=== PATIENT | female | born 1985 | race Caucasian/White ===

== ENCOUNTER → 2017-12-24 | Outpatient (CLI) | payer OTHER | LOC: BRMIMAGING 16:00 | PROVIDERS: ATTEND Internal Medicine | DX: M54.5 Low back pain (principal); M51.27 Other intervertebral disc displacement, lumbosacral region; X50.0XXA Overexertion from strenuous movement or load, initial encounter | CPT/HCPCS: 72100-PO ==

== ENCOUNTER 2018-12-29 15:49 | Inpatient (IN) | payer OTHER ==
[2018-12-29] MEDS ORDERED: NS 1,000 ML IV ONE (16:14)
[2018-12-29] MEDS ORDERED: HYDROmorphONE/DILAUDID 2 MG/ML INJ IVP ONE (16:14)
[2018-12-29 16:30] LABS: PLATELET COUNT 334 10^3/uL (150-400)
--- NOTE | 2018-12-29 17:00 | EDPHY ---
H & P Stated Complaint: RLQ abdominal pain since Saturday PM Time Seen by Provider: 12/29/18 16:06 HPI/ROS: CHIEF COMPLAINT: Right lower quadrant pain HISTORY OF PRESENT ILLNESS: The patient presents the ED with complaints of increasing right lower quadrant pain over past 72 hr. The patient denies any vomiting or fever. She does report mild anorexia today. The patient denies prior history of the symptoms. The patient denies hematuria or dysuria. The patient denies recent travel outside the [place]. She has no respiratory symptoms. REVIEW OF SYSTEMS: A comprehensive 10 point review of systems is otherwise negative aside from elements mentioned in the history of present illness. Source: Patient - Personal History LMP (Females 10-55): 1-7 Days Ago Current Tetanus/Diphtheria Vaccine: No Current Tetanus Diphtheria and Acellular Pertussis (TDAP): No - Medical/Surgical History Hx Asthma: No Hx Chronic Respiratory Disease: No Hx Diabetes: No Hx Cardiac Disease: No Hx Renal Disease: No Hx Cirrhosis: No Hx Alcoholism: No Hx HIV/AIDS: No Hx Splenectomy or Spleen Trauma: No Other PMH: mi - spontaneous cardiac arterial dissection, depression - Social History Smoking Status: Never smoked - Physical Exam Exam: General Appearance: Alert, no distress Eyes: Pupils equal and round no pallor or injection ENT, Mouth: Mucous membranes moist Respiratory: There are no retractions, lungs are clear to auscultation Cardiovascular: Regular rate and rhythm Gastrointestinal: Tenderness to palpation right lower quadrant, mild rebound and guarding Neurological: A&O, normal motor function, normal sensory exam, normal cranial nerves Skin: Warm and dry, no rashes Musculoskeletal: Neck is supple nontender Extremities: symmetrical, full range of motion Psychiatric: Patient is oriented X 3, there is no agitation Constitutional: Initial Vital Signs Temperature (C) 36.8 C 12/29/18 15:51 Heart Rate 79 12/29/18 15:51 Respiratory Rate 19 12/29/18 15:51 Blood Pressure 121/83 H 12/29/18 15:51 O2 Sat (%) 94 12/29/18 15:51 O2 Delivery Mode Room Air Allergies/Adverse Reactions: No Known Allergies Allergy (Unverified 07/14/18 23:02) Home Medications: Medication Instructions Recorded oxyCODONE/APAP 5/325 [Percocet 1 - 2 tab PO Q4H PRN #10 tab 07/14/18 5/325 (*)] Medical Decision Making - Diagnostics EKG Interpretation: EKG: Complete interpretation has been separately recorded in the [facility] archive. Summary impression: Sinus rhythm, left bundle branch block Imaging Results: Imaging Impressions Abdomen CT 12/29/18 16:57 Impression: Acute appendicitis, not ruptured. Findings and recommendations discussed with Dr. Asa Edwards at 5:30 p.m., . Final report concurs with initial preliminary interpretation. ED Course/Re-evaluation: The patient presents the ED for evaluation of right lower quadrant pain for the past day. The patient was noted to have mild tenderness to palpation in the right lower quadrant. Patient was noted to have a slight leukocytosis. Patient had an IV established. She received half a mg of Dilaudid. She received 1 L of normal saline for dehydration. CT scan of the abdomen pelvis was obtained which demonstrates evidence of acute appendicitis without perforation. Patient received 1 g of cefoxitin in the emergency department. Consultation was made with Dr. Jimmie Garsia from General surgery. Patient will be admitted to the hospital for further evaluation and management of her acute appendicitis. The patient was seen by General Surgery in the ED at 5:47pm Differential Diagnosis: Differential diagnosis considered includes appendicitis, perforation, abscess, mesenteric adenitis - Data Points Laboratory Results: Laboratory Results 12/29/18 16:12 12/29/18 16:12 12/29/18 12/29/18 12/29/18 16:12 16:12 16:12 WBC 13.10 10^3/uL H 10^3/uL (3.80-9.50) RBC 4.99 10^6/uL 10^6/uL (4.18-5.33) Hgb 14.5 g/dL g/dL (12.6-16.3) Hct 42.4 % % (38.0-47.0) MCV 85.0 fL fL (81.5-99.8) MCH 29.1 pg pg (27.9-34.1) MCHC 34.2 g/dL g/dL (32.4-36.7) RDW 12.9 % % (11.5-15.2) Plt Count 334 10^3/uL 10^3/uL (150-400) MPV 9.7 fL fL (8.7-11.7) Neut % (Auto) 66.7 % % (39.3-74.2) Lymph % (Auto) 22.9 % % (15.0-45.0) [place] % (Auto) 7.1 % % (4.5-13.0) Eos % (Auto) 2.5 % % (0.6-7.6) Baso % (Auto) 0.5 % % (0.3-1.7) Nucleat RBC Rel Count 0.0 % % (0.0-0.2) Absolute Neuts (auto) 8.74 10^3/uL H 10^3/uL (1.70-6.50) Absolute Lymphs (auto) 3.00 10^3/uL 10^3/uL (1.00-3.00) Absolute Monos (auto) 0.93 10^3/uL H 10^3/uL (0.30-0.80) Absolute Eos (auto) 0.33 10^3/uL 10^3/uL (0.03-0.40) Absolute Basos (auto) 0.06 10^3/uL 10^3/uL (0.02-0.10) Absolute Nucleated RBC 0.00 10^3/uL 10^3/uL (0-0.01) Immature Gran % 0.3 % % (0.0-1.1) Immature Gran # 0.04 10^3/uL 10^3/uL (0.00-0.10) Sodium 137 mEq/L mEq/L (135-145) Potassium 4.1 mEq/L mEq/L (3.5-5.2) Chloride 106 mEq/L mEq/L (97-110) Carbon Dioxide 21 mEq/l L mEq/l (22-31) Anion Gap 10 mEq/L mEq/L (6-14) BUN 16 mg/dL mg/dL (7-23) Creatinine 1.1 mg/dL H mg/dL (0.6-1.0) Estimated GFR 57 Glucose 102 mg/dL H mg/dL (70-100) Calcium 9.3 mg/dL mg/dL (8.5-10.4) Beta HCG, Qual NEGATIVE Medications Given: Discontinued Medications Hydromorphone HCl (Dilaudid) 0.5 mg IVP EDNOW ONE Stop: 12/29/18 16:15 Last Admin: 12/29/18 16:25 Dose: 0.5 mg Sodium Chloride (Ns) 1,000 mls @ 0 mls/hr IV EDNOW ONE; Wide Open PRN Reason: Protocol Stop: 12/29/18 16:15 Last Admin: 12/29/18 16:25 Dose: 1,000 mls Departure - Departure Disposition: [facility] Inpatient Acute Clinical Impression: Appendicitis Qualifiers: Appendicitis type: acute appendicitis Acute appendicitis type: with localized peritonitis Appendicitis gangrene presence: without gangrene Appendicitis perforation presence: without perforation Appendicitis abscess presence: without abscess Qualified Code(s): K35.30 - Acute appendicitis with localized peritonitis, without perforation or gangrene Condition: Good
[2018-12-29] MEDS ORDERED: IOHEXOL 300 mgI/ML (OMNIPAQUE) 150 ML BTL IV ONE (17:01)
[2018-12-29] MEDS ORDERED: cefOXitin SODIUM 1 GM in NS 50 ML IV ONE (17:34)
--- NOTE | 2018-12-29 17:59 | CPEKG ---
Test Reason : OPEN Blood Pressure : / mmHG Vent. Rate : 074 BPM Atrial Rate : 074 BPM P-R Int : 164 ms QRS Dur : 153 ms QT Int : 433 ms P-R-T Axes : 030 -33 111 degrees QTc Int : 481 ms Sinus rhythm Left bundle branch block Confirmed by Asa Edwards ([id number]) on 12/29/2018 5:58:15 PM Referred By: Asa Edwards Confirmed By:Asa Edwards
[2018-12-29] MEDS ORDERED: cefOXitin SODIUM 2 GM in NS 100 ML IV ONE (18:05)
[2018-12-29] MEDS ORDERED: HYDROmorphONE/DILAUDID 1 MG/ML INJ IVP PRN (18:25)
[2018-12-29] MEDS ORDERED: HYDROmorphONE/DILAUDID 1 MG/ML INJ ONE (18:26)
[2018-12-29] MEDS ORDERED: BUPIVACAINE/EPI 0.5% 30 ML SDV ONE (18:36)
--- NOTE | 2018-12-29 18:47 | PDGENHP ---
History & Physical Chief Complaint: rlq pain- ct documented acute appendicitis, pain for 3 days Pertinent Past, Social, Family History: non contrib. 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 currnet meds lisinopril, bisoprolol, spironolactone, asa. non smker, no etoh. 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 lungs clear heart nml s1s2 no m. abd tender rlq, no guarding, no rigitity. ext/neuro wnl
[2018-12-29] MEDS ORDERED: CITRIC ACID/SODIUM CITRATE 30 ML UDCUP PO ONE (19:14)
[2018-12-29] MEDS ORDERED: MIDAZOLAM 2 MG/2 ML VIAL IVP ONE (19:14)
--- NOTE | 2018-12-29 19:16 | PDANEPAE ---
ANE Past Medical History - Cardiovascular History Hx Hypertension: No Hx Arrhythmias: No Hx Chest Pain: No Hx Coronary Artery / Peripheral Vascular Disease: Yes Hx CHF / Valvular Disease: No Hx Palpitations: No - Pulmonary History Hx COPD: No Hx Asthma/Reactive Airway Disease: No Hx Recent Upper Respiratory Infection: No Hx Oxygen in Use at Home: No Hx Sleep Apnea: No - Endocrine History Hx Diabetes: No Hypothyroid: No Hyperthyroid: No Obesity: moderate ANE Review of Systems Review of Systems: ANE Patient History - Allergies Allergies/Adverse Reactions: banana Allergy (Verified 12/29/18 18:52) Itch kiwi Allergy (Verified 12/29/18 18:52) Itch Latex, Natural Rubber Allergy (Verified 12/29/18 18:53) swelling locally orange Allergy (Verified 12/29/18 18:52) Itch shellfish derived Allergy (Verified 12/29/18 18:52) Pass Out strawberry Allergy (Verified 12/29/18 18:52) Itch tide Allergy (Uncoded 12/29/18 18:52) Rash - Home Medications Home Medications: Albuterol [Proventil Inhaler HFA (*)] 1 - 2 puffs IH Q4H PRN 12/29/18 [Last Taken 1 Month Ago ~11/28/18] Aspirin EC [Aspirin EC 81 mg (*)] 81 mg PO HS 12/29/18 [Last Taken 12/28/18] Bisoprolol Fumarate 10 mg PO HS 12/29/18 [Last Taken 12/28/18] Cetirizine [ZyrTEC 10 mg (*)] 10 mg PO HS 12/29/18 [Last Taken 12/28/18] Escitalopram Oxalate [Lexapro] 10 mg PO DAILY 12/29/18 [Last Taken 12/29/18] Herbals/Supplements -Info Only 1 ea PO DAILY 12/29/18 [Last Taken 12/28/18] Lisinopril [Zestril 2.5 mg (*)] 2.5 mg PO HS 12/29/18 [Last Taken 12/28/18] Norethindrone [Norlyda] 0.35 mg PO HS 12/29/18 [Last Taken 12/28/18] Spironolactone [Aldactone 25 MG (*)] 12.5 mg PO HS 12/29/18 [Last Taken 12/28/18 ] buPROPion XL [Wellbutrin Xl] 150 mg PO DAILY 12/29/18 [Last Taken 12/29/18] - NPO status NPO Since - Liquids (Date): 12/29/18 NPO Since - Liquids (Time): 12:30 NPO Since - Solids (Date): 12/29/18 NPO Since - Solids (Time): 12:30 - Smoking Hx Smoking Status: Never smoked ANE Labs/Vital Signs - Labs Result Diagrams: 12/29/18 16:12 12/29/18 16:12 - Vital Signs Blood Pressure: 124/80 Heart Rate: 77 Respiratory Rate: 16 O2 Sat (%): 96 Height: 177.8 cm Weight: 108.862 kg ANE Physical Exam - Airway Neck exam: FROM Mallampati Score: Class 1 Mouth exam: normal dental/mouth exam - Pulmonary Pulmonary: no respiratory distress - Cardiovascular Cardiovascular: regular rate and rhythym ANE Anesthesia Plan Anesthesia Plan: general endotracheal anesthesia
[2018-12-29] MEDS ORDERED: LR 1,000 ML IV ONE (19:18)
[2018-12-29] MEDS ORDERED: CITRIC ACID/SODIUM CITRATE 30 ML UDCUP ONE (19:21)
[2018-12-29] MEDS ORDERED: MIDAZOLAM 2 MG/2 ML VIAL ONE ×2 (19:21→21:08)
[2018-12-29] MEDS ORDERED: PROPOFOL 200 MG/20 ML VIAL ONE ×2 (19:26→19:27)
[2018-12-29] MEDS ORDERED: ROCURONIUM 100 MG/10 ML VIAL ONE (19:27)
[2018-12-29] MEDS ORDERED: LIDOCAINE 2% 5 ML SDV ONE (19:27)
[2018-12-29] MEDS ORDERED: fentaNYL 250 MCG/5 ML INJ ONE (19:27)
[2018-12-29] MEDS ORDERED: HYDROmorphONE/DILAUDID 1 MG/ML INJ IVP ONE (20:00)
[2018-12-29] MEDS: HYDROmorphONE/DILAUDID 2 MG/ML INJ IVP PRN ×6 (21:00→21:49)
[2018-12-29] MEDS ORDERED: HYDROmorphONE/DILAUDID 2 MG/ML INJ ONE (21:13)
[2018-12-29] MEDS ORDERED: PROMETHAZINE HCL 25 MG/ML INJ IVP PRN (21:23)
[2018-12-29] MEDS ORDERED: NALOXONE HCL 0.4 MG/ML INJ IVP PRN (21:23)
[2018-12-29] MEDS ORDERED: HYDROCODONE/APAP 5/325 TAB PO PRN (21:23)
[2018-12-29] MEDS ORDERED: LR 500 ML IV PRN (21:23)
[2018-12-29] MEDS ORDERED: LABETALOL HCL 5 MG/ML 20 ML MDV IVP PRN (21:23)
--- NOTE | 2018-12-29 21:23 | POSTANESTH ---
Post Anesthetic Evaluation Cardiovascular Status: Normal, Stable Respiratory Status: Normal, Stable Level of Consciousness/Mental Status: Can Participate in Eval Pain Control: Adequate, Prn Tx Ordered Nausea/Vomiting Control: Adequate, Prn Tx Ordered Complications Possibly Related to Anesthesia: None Noted (Patient seems emotionally distressed, but oriented to time, place, person. Benzodiazepine titrated, in addition to Dilaudid for pain control.)
[2018-12-29] MEDS ORDERED: ONDANSETRON 4 MG/2 ML VIAL IVP PRN (21:24)
--- NOTE | 2018-12-29 21:24 | POSTOPPROG ---
Post Op Note Date of Operation: 12/29/18 Surgeon: Jimmie Garsia Anesthesia: GET(General Endotracheal) Pre-op Diagnosis: acute appy Post-op Diagnosis: same- focal rupture Indication: same Procedure: lap appy Findings: fibrosis, contained rupture Inf/Abcess present in the surg proc area at time of surgery?: Yes Depth: Organ Space EBL: Minimal Complications: none
[2018-12-29] MEDS ORDERED: KETOROLAC 30 MG/1 ML SDV ONE (21:26)
[2018-12-29] MEDS ORDERED: KETOROLAC 30 MG/1 ML SDV IVP ONE (21:26)
[2018-12-29] MEDS ORDERED: fentaNYL 100 MCG/2 ML INJ ONE (21:36)
[2018-12-29] MEDS: fentaNYL 100 MCG/2 ML INJ IVP PRN ×2 (21:38→21:43)
[2018-12-29] MEDS ORDERED: HYDROCODONE/APAP 5/325 TAB ONE (21:53)
--- NOTE | 2018-12-29 21:59 | GOP ---
[f rep st] OPERATIVE REPORT DATE OF OPERATION: 12/29/2018 SURGEON: Jimmie Garsia MD PREOPERATIVE DIAGNOSIS: Appendicitis, focal rupture. POSTOPERATIVE DIAGNOSIS: Appendicitis, focal rupture. PROCEDURE PERFORMED: Laparoscopic appendectomy, focal, ruptured. FINDINGS: INDICATIONS: Patient with CT-documented acute appendicitis, white blood count 13,000. DESCRIPTION OF PROCEDURE: Under general anesthetic, the abdomen scrubbed with ChloraPrep, draped in the usual sterile fashion, infraumbilical incision made, and a Veress needle used to achieve a pneumo peritoneum. This was somewhat difficult because of thick panniculus. However, eventually, correct e ntrance was made, a 12 mm port placed; eventually, two 5 mm ports elsewhere. The viscera were examin ed. There was no gross purulence. The appendix could not be easily seen; it was quite retroperitone al. The terminal ileum was freed up from the right lateral sidewall, as was the cecum, and then the appendix identified. It was indurated, fibrotic, stuck both to the backside of the terminal ileum, a s well as the base of the cecum. This was carefully freed up with both blunt and sharp dissection, a nd it was felt easier to do a retrograde appendectomy. Therefore, the appendix, which was normal wer e it joined the cecum, was amputated with a blue cartridge of an Endo BRENDA 35. Then, the mesoappendix could be safely taken with the Harmonic Scalpel. As the distal 3rd of the appendix was freed up, it was obvious there was a focal rupture into the mesentery. A small amount of either purulence or muc us was leaking out of this, and it was sucked up with cautery, and at the end of the case after the a ppendix was placed in an Endopouch, irrigation and suction cleaned out the right lower quadrant furth er. There was no significant bleeding. As much fluid as possible was aspirated from the abdomen, al l of which was irrigation, after which, the appendix was extracted in the bag. The fascial defect at the umbilicus closed with a [id number] 0 Vicryl suture. Skin incisions all closed with 4-0 Josemanuel ryl and Dermabond. Patient tolerated the procedure well. /[id number]/MODL
[2018-12-29] MEDS: HYDROmorphONE/DILAUDID 1 MG/ML INJ IVP PRN (22:53)
[2018-12-29] MEDS: LR 1,000 ML IV SCH (22:53)
[2018-12-29] MEDS: cefOXitin SODIUM 1 GM in NS 50 ML IV SCH (23:49)
[2018-12-30] MEDS: cefOXitin SODIUM 1 GM in NS 50 ML IV SCH ×4 (06:09→23:19)
[2018-12-30] MEDS: LR 1,000 ML IV SCH (06:09)
--- NOTE | 2018-12-30 06:12 | PDMN ---
Medical Necessity Medical necessity: [facility] [place] [id number] appy with abscess or peritonitis , by Lap 2 days - OP: Lap appy , focal, ruptured
[2018-12-30] MEDS: HYDROmorphONE/DILAUDID 1 MG/ML INJ IVP PRN ×7 (06:18→23:19)
[2018-12-30] MEDS: HYDROCODONE/APAP 5/325 TAB PO PRN ×4 (07:49→19:35)
[2018-12-30] MEDS ORDERED: ALBUTEROL 60 PUFFS/8 GM MDI IH PRN (10:26)
[2018-12-30] MEDS: buPROPion XL 150 MG TAB PO SCH (11:42)
[2018-12-30] MEDS: ESCITALOPRAM OXALATE 10 MG TAB PO SCH (11:42)
--- NOTE | 2018-12-30 14:43 | ASMTCMCOM ---
CM Note CM Note Notes: Chart reviewed for dc planning purposes. Patient is 33 year old female s/p appendectomy. No needs identified. CM available should needs arise. Plan: DC home when medically cleared for dc. Date Signed: 12/30/2018 02:42 PM Electronically Signed By:Mihaela Leon RN
--- NOTE | 2018-12-30 18:45 | SOAPPROG ---
SOAP Progress Note Assessment/Plan: Assessment: Plan: Subjective: vss, af abd soft. plan to continue antibiotics at least one more day. will re eval tomorrow Objective: Vital Signs Temp Pulse Resp BP Pulse Ox 36.4 C 93 16 117/67 95 12/30/18 15:07 12/30/18 15:07 12/30/18 15:07 12/30/18 15:07 12/30/18 15:07 12/29/18 12/30/18 12/31/18 05:59 05:59 05:59 Intake Total 4282 700 Output Total 760 400 Balance 3522 300 ICD10 Worksheet Patient Problems: Problems Problem Status Onset Appendicitis Acute Abrasion Acute Contusion Acute
[2018-12-30] MEDS ORDERED: NORETHINDRONE 0.35 MG PO SCH (21:00)
[2018-12-30] MEDS ORDERED: CETIRIZINE 10 MG TAB PO SCH (21:00)
[2018-12-30] MEDS ORDERED: LISINOPRIL 2.5 MG TAB PO SCH (21:00)
[2018-12-30] MEDS ORDERED: BISOPROLOL FUMARATE 5 MG TAB PO SCH (21:00)
[2018-12-30] MEDS ORDERED: SPIRONOLACTONE 25 MG TAB PO SCH (21:00)
[2018-12-30] MEDS ORDERED: ASPIRIN EC 81 MG TAB PO SCH (21:00)
[2018-12-30] MEDS: oxyCODONE IR 5 MG TAB PO PRN ×2 (21:44→22:19)
[2018-12-31] MEDS: HYDROmorphONE/DILAUDID 1 MG/ML INJ IVP PRN ×4 (00:44→11:28)
[2018-12-31] MEDS: oxyCODONE IR 5 MG TAB PO PRN ×4 (04:29→16:58)
[2018-12-31] MEDS: cefOXitin SODIUM 1 GM in NS 50 ML IV SCH ×2 (05:29→13:06)
[2018-12-31] MEDS: LR 1,000 ML IV SCH (08:30)
[2018-12-31] MEDS: ESCITALOPRAM OXALATE 10 MG TAB PO SCH (08:36)
[2018-12-31] MEDS: buPROPion XL 150 MG TAB PO SCH (08:36)
--- NOTE | 2018-12-31 12:39 | SOAPPROG ---
SOAP Progress Note Assessment/Plan: Assessment: Plan: Subjective: afebrile, ready to dc home will send on augmentin 875 bicd for 5 days Objective: Vital Signs Temp Pulse Resp BP Pulse Ox 36.6 C 77 14 96/54 L 92 12/31/18 04:00 12/31/18 04:00 12/31/18 04:00 12/31/18 04:00 12/31/18 04:00 12/30/18 12/31/18 01/01/19 05:59 05:59 05:59 Intake Total 4282 3430 Output Total 760 1150 400 Balance 3522 2280 -400 ICD10 Worksheet Patient Problems: Problems Problem Status Onset Appendicitis Acute Abrasion Acute Contusion Acute
[2018-12-31 12:46] VITALS: BP 107/63
--- NOTE | 2018-12-31 13:05 | GDS ---
[f rep st] DISCHARGE SUMMARY PRESENT ILLNESS: Patient was admitted with acute appendicitis. At surgery, she was found to have a contained ruptured appendix. She was kept in the hospital, maintained on Mefoxin. She is afebrile. It is felt reasonable to send her home on 5 days of Augmentin. FINAL DIAGNOSIS: Focally ruptured acute appendicitis. OPERATION: Laparoscopic appendectomy for ruptured appendicitis. COMPLICATIONS: None. DISPOSITION: Home. DISCHARGE MEDICATIONS: Augmentin 875 p.o. twice daily, #10 given. FOLLOWUP: With Dr. Garsia in a week. /[id number]/MODL
--- NOTE | 2018-12-31 15:53 | ASMTLACE ---
KOFFI Length of stay for Answers: 2 days current admission Acuity / Level of Answers: Yes Care: Did the patient have an inpatient admission? Comorbidities - select Answers: Coronary Artery Disease all that apply Previous myocardial infarction # of Emergency department Answers: 1-2 visits in the last 6 months Social determinants Answers: Mental health diagnosis (anxiety, depression, pers onality disorders, etc.) Score: 12 Date Signed: 12/31/2018 03:52 PM Electronically Signed By:Mya Santoyo RN
== END 2018-12-31 17:29 | disposition home or self-care (01) | DRG 343 ==
LOC: F1N 22:12
PROVIDERS: ADMIT Surgery; ATTEND Surgery
PROC: 0DTJ4ZZ Resection of Appendix, Percutaneous Endoscopic Approach (ICD-10-PCS; principal; 2018-12-29 19:45)
DX: K35.30 Acute appendicitis with localized peritonitis, without perforation or gangrene (principal); E86.0 Dehydration; F32.9 Major depressive disorder, single episode, unspecified; Z91.040 Latex allergy status
CPT/HCPCS: 96374; 97116-GP; 97161-GP; J0694; J1170; J1885; J2250; J2704; J3010; Q9967

== ENCOUNTER 2019-01-15 21:33 | Emergency (ER) | payer OTHER ==
--- NOTE | 2019-01-15 22:03 | EDPHY ---
H & P Stated Complaint: abnormal d-dimer- 2 weeks post- op Time Seen by Provider: 01/15/19 22:00 HPI/ROS: HPI: This is a 33-year-old female who presents with Chief Complaint: Right-sided chest pain Location: Right-sided chest Quality: Pain and dyspnea Duration: Since last night Signs and Symptoms: + shortness of breath at rest, + shortness of breath on exertion, no cough, no chest pain, no palpitations, no lower extremity edema, no wheezing, no orthopnea, no paroxysmal nocturnal dyspnea, no fever, no injury/ trauma, no hemoptysis, no carpal pedal spasms Timing: Worsening Severity: Moderate Context: Patient is status post laparoscopic appendectomy by Dr. Jimmie Garsia on 12/29/2018 presents with right sided chest discomfort accompanied by shortness of breath and inability to take a deep breath starting yesterday evening while lying in bed. Patient reports that while she has at work this afternoon she started to feel short of breath at rest and on exertion while she was standing talking to her boss. She reports that the feeling became more intense. Denies any recent long distance travel. History of asthma. Nonsmoker. She went to primary care provider today Dr. Franco who ordered chest x-ray and rib series that were unremarkable per the patient. Laboratory studies were unremarkable except an elevated D-dimer at 5.50. She was then directed to the emergency room to evaluate for pulmonary embolism. Modifying Factors: None Comment: ROS: A comprehensive 10 system review of systems is otherwise negative aside from elements mentioned in the history of present illness. MEDICAL/SURGICAL/SOCIAL HISTORY: Medical history: mi - spontaneous cardiac arterial dissection, L5 S1 micro discectomy, depression Surgical history: Laparoscopic appendectomy Social history: Employed, never smoked. CONSTITUTIONAL: Well-developed, well-nourished overweight slightly anxious white female, awake and alert, no obvious distress HEENT: Atraumatic and normocephalic, PERRL, EOMI. Wears glasses. Nares patent ; no rhinorrhea; no nasal mucosal edema. Tympanic membranes clear. Oropharynx clear, no exudate and moist pink mucosa. Airway patent. No lymphadenopathy. No meningismus. Cardiovascular: Normal S1/S2, regular rate, regular rhythm, without murmur rub or gallop. PULMONARY/CHEST: Symmetrical and nontender. Clear to auscultation bilaterally. Fair air movement. No accessory muscle usage. Tachypnea. Shallow breathing pattern. ABDOMEN: Soft, nondistended, nontender, no rebound, no guarding, no peritoneal signs, no masses or organomegaly. No CVAT. EXTREMITIES: 2/2 pulses, strength 5/5, no deformities, no clubbing, no cyanosis or edema. NEUROLOGICAL: no focal neuro deficits. GCS 15. SKIN: Warm and dry, no erythema. no rash. Good capillary refill. Source: Patient Exam Limitations: No limitations - Personal History LMP (Females 10-55): 1-7 Days Ago Current Tetanus Diphtheria and Acellular Pertussis (TDAP): No - Medical/Surgical History Hx Asthma: No Hx Chronic Respiratory Disease: No Hx Diabetes: No Hx Cardiac Disease: No Hx Renal Disease: No Hx Cirrhosis: No Hx Alcoholism: No Hx HIV/AIDS: No Hx Splenectomy or Spleen Trauma: No Other PMH: mi - spontaneous cardiac arterial dissection, L5 S1 micro disectomy, depression. appendectomy - Social History Smoking Status: Never smoked Constitutional: Initial Vital Signs Temperature (C) 37 C 01/15/19 21:35 Heart Rate 89 01/15/19 21:35 Respiratory Rate 16 01/15/19 21:35 Blood Pressure 111/88 H 01/15/19 21:35 O2 Sat (%) 95 01/15/19 21:35 Allergies/Adverse Reactions: banana Allergy (Verified 01/15/19 21:35) Itch kiwi Allergy (Verified 01/15/19 21:35) Itch Latex, Natural Rubber Allergy (Verified 01/15/19 21:35) swelling locally orange Allergy (Verified 01/15/19 21:35) Itch shellfish derived Allergy (Verified 01/15/19 21:35) Pass Out strawberry Allergy (Verified 01/15/19 21:35) Itch tide Allergy (Uncoded 01/15/19 21:35) Rash Home Medications: Medication Instructions Recorded Albuterol [Proventil Inhaler HFA 1 - 2 puffs IH Q4H PRN 12/29/18 (*)] Aspirin EC [Aspirin EC 81 mg (*)] 81 mg PO HS 12/29/18 Bisoprolol Fumarate 10 mg PO HS 12/29/18 Cetirizine [ZyrTEC 10 mg (*)] 10 mg PO HS 12/29/18 Escitalopram Oxalate [Lexapro] 10 mg PO DAILY 12/29/18 Herbals/Supplements -Info Only 1 ea PO DAILY 12/29/18 Lisinopril [Zestril 2.5 mg (*)] 2.5 mg PO HS 12/29/18 Norethindrone [Norlyda] 0.35 mg PO HS 12/29/18 Spironolactone [Aldactone 25 MG 12.5 mg PO HS 12/29/18 (*)] buPROPion XL [Wellbutrin 150mg XL] 150 mg PO DAILY 12/29/18 Amoxicillin/Clavulanate Pot 875 mg PO BID #10 tab 12/31/18 [Augmentin 875 MG TAB (*)] Medical Decision Making - Diagnostics Imaging Results: Imaging Impressions Chest/Thorax CTA 01/15/19 22:04 Impression: 1. There is no CT evidence for pulmonary artery thromboembolic disease. 2. Scant pleural fluid at the right costophrenic angle. Findings were discussed with Viry Montalvo PA-C at 23:21, on 01/15/2019. ED Course/Re-evaluation: Vital signs reviewed and stable. No hypoxia/respiratory distress. I-STAT, IV access, laboratory studies, CTA chest ordered 0: Laboratory studies reviewed. No signs of leukocytosis/anemia/platelet dysfunction/INOCENCIO/electrolyte imbalance/. 2339: Called by Radiology, Dr. Camp who advises that there is no pulmonary embolism, no infiltrate, + scant pleural fluid on the right with atelectasis, fatty liver, gallbladder contracted, no free air. Patient given a prescription for albuterol inhaler, advised incentive spirometry with PCP follow-up. Reports that she still has pain medications left over from surgery. This patient was seen under the supervision of my secondary supervising physician. I evaluated care for this patient with attending. Discussed this patient with Dr. Johnson. Differential Diagnosis: Chest pain including but not limited to myocardial ischemia, pulmonary embolus, chest wall pain, pleural inflammation and pulmonary infectious causes. - Data Points Laboratory Results: Laboratory Results 01/15/19 22:10 01/15/19 22:10 01/15/19 01/15/19 01/15/19 22:27 22:10 22:10 WBC RBC Hgb POC Hgb 14.6 gm/dL gm/dL (12.6-16.3) Hct POC Hct 43 % % (38-47) MCV MCH MCHC RDW Plt Count MPV Neut % (Auto) Lymph % (Auto) [place] % (Auto) Eos % (Auto) Baso % (Auto) Nucleat RBC Rel Count Absolute Neuts (auto) Absolute Lymphs (auto) Absolute Monos (auto) Absolute Eos (auto) Absolute Basos (auto) Absolute Nucleated RBC Immature Gran % Immature Gran # POC Sodium 141 mEq/L mEq/L (135-145) Sodium 135 mEq/L mEq/L (135-145) POC Potassium 3.7 mEq/L mEq/L (3.3-5.0) Potassium 4.0 mEq/L mEq/L (3.5-5.2) POC Chloride 106 mEq/L mEq/L (97-110) Chloride 105 mEq/L mEq/L (97-110) Carbon Dioxide 22 mEq/l mEq/l (22-31) POC Total CO2 23 mEq/L mEq/L (22-31) Anion Gap 8 mEq/L mEq/L (6-14) POC BUN 18 mg/dL mg/dL (7-23) BUN 20 mg/dL mg/dL (7-23) Creatinine 0.9 mg/dL mg/dL (0.6-1.0) POC Creatinine 0.8 mg/dL mg/dL (0.6-1.0) Estimated GFR > 60 Glucose 102 mg/dL H mg/dL (70-100) POC Glucose 117 mg/dL H mg/dL (70-100) Calcium 9.4 mg/dL mg/dL (8.5-10.4) Beta HCG, Qual NEGATIVE 01/15/19 22:10 WBC 10.25 10^3/uL H 10^3/uL (3.80-9.50) RBC 4.88 10^6/uL 10^6/uL (4.18-5.33) Hgb 14.3 g/dL g/dL (12.6-16.3) POC Hgb Hct 43.1 % % (38.0-47.0) POC Hct MCV 88.3 fL fL (81.5-99.8) MCH 29.3 pg pg (27.9-34.1) MCHC 33.2 g/dL g/dL (32.4-36.7) RDW 12.5 % % (11.5-15.2) Plt Count 349 10^3/uL 10^3/uL (150-400) MPV 9.8 fL fL (8.7-11.7) Neut % (Auto) 53.1 % % (39.3-74.2) Lymph % (Auto) 33.6 % % (15.0-45.0) [place] % (Auto) 7.8 % % (4.5-13.0) Eos % (Auto) 4.7 % % (0.6-7.6) Baso % (Auto) 0.5 % % (0.3-1.7) Nucleat RBC Rel Count 0.0 % % (0.0-0.2) Absolute Neuts (auto) 5.45 10^3/uL 10^3/uL (1.70-6.50) Absolute Lymphs (auto) 3.44 10^3/uL H 10^3/uL (1.00-3.00) Absolute Monos (auto) 0.80 10^3/uL 10^3/uL (0.30-0.80) Absolute Eos (auto) 0.48 10^3/uL H 10^3/uL (0.03-0.40) Absolute Basos (auto) 0.05 10^3/uL 10^3/uL (0.02-0.10) Absolute Nucleated RBC 0.00 10^3/uL 10^3/uL (0-0.01) Immature Gran % 0.3 % % (0.0-1.1) Immature Gran # 0.03 10^3/uL 10^3/uL (0.00-0.10) POC Sodium Sodium POC Potassium Potassium POC Chloride Chloride Carbon Dioxide POC Total CO2 Anion Gap POC BUN BUN Creatinine POC Creatinine Estimated GFR Glucose POC Glucose Calcium Beta HCG, Qual Point of Care Test Results: Chemistry 01/15/19 22:27 POC Sodium 141 mEq/L mEq/L (135-145) POC Potassium 3.7 mEq/L mEq/L (3.3-5.0) POC Chloride 106 mEq/L mEq/L (97-110) POC Total CO2 23 mEq/L mEq/L (22-31) POC BUN 18 mg/dL mg/dL (7-23) POC Creatinine 0.8 mg/dL mg/dL (0.6-1.0) POC Glucose 117 mg/dL H mg/dL (70-100) ISTAT H&H 01/15/19 22:27 POC Hgb 14.6 gm/dL gm/dL (12.6-16.3) POC Hct 43 % % (38-47) Departure - Departure Disposition: Home, Routine, Self-Care Clinical Impression: Pleural effusion on right Dyspnea Qualifiers: Dyspnea type: unspecified Qualified Code(s): R06.00 - Dyspnea, unspecified Condition: Good Instructions: Atelectasis (ED), How to Use an Incentive Spirometer (ED), Pleural Effusion (ED), Pleurisy (ED) Additional Instructions: Continue to use incentive spirometry every 3-4 hours while awake for the next 3- 7 days. Use albuterol inhaler 1-2 puffs every 4-6 hours as needed for shortness of breath, dyspnea. Use humidifier in your home during the winter months while you are using central heating. Follow-up with primary care provider in the next 3-4 days. Referrals: Ai Hunt MD [Primary Care Provider] - As per Instructions ARSALAN GARZA MD [Non Staff Provider ()] - 3-4 days, if not improved
[2019-01-15 22:24] LABS: PLATELET COUNT 349 10^3/uL (150-400)
[2019-01-15] MEDS ORDERED: IOPAMIDOL (ISOVUE 370) 100 ML BTL IV ONE (22:29)
[2019-01-15] MEDS ORDERED: ALBUTEROL INH PREPACK MDI TAKEHOME ONE (23:33)
[2019-01-15 23:56] VITALS: BP 109/60
== END 2019-01-15 23:54 | disposition home or self-care (01) ==
DX: R06.00 Dyspnea, unspecified (principal); J90 Pleural effusion, not elsewhere classified
CPT/HCPCS: 82435-PO; 82565-PO; 82947-PO; 84132-PO; 84295-PO; 84520-PO; 85014-ER; Q9967